=== PATIENT | female | born 2000 | race Caucasian/White ===

== ENCOUNTER → 2021-12-03 15:22 | Outpatient (BNVA) | payer BC, MEDICAID, SELFPAY | PROVIDERS: Visit Provider Nurse Practitioner Family | DX: R53.83 Other fatigue (principal); Z13.6 Encounter for screening for cardiovascular disorders; R11.0 Nausea; R63.4 Abnormal weight loss; F41.9 Anxiety disorder, unspecified; F32.A Depression, unspecified | CPT/HCPCS: 80053; 80061; 82306; 82607; 83735; 84439; 84443; 85025 ==